=== PATIENT | female | born 1970 | race Caucasian/White ===

== ENCOUNTER 2019-01-20 11:48 | Emergency (ER) | payer MEDICAID ==
[~2019-01-20] VITALS: Ht 165.1 cm; Wt 74.8 kg
[2019-01-20 11:55] VITALS: BP 132/71; Ht 165.1 cm; Wt 74.8 kg
[2019-01-20] MEDS ORDERED: NEURONTIN 400400 MG PO (12:41)
[2019-01-20] MEDS ORDERED: ZOVIRAX800 MG PO (12:41)
== END 2019-01-20 12:52 | disposition home or self-care (01) ==
LOC: D.ER 11:48
DX: B02.9 Zoster without complications (principal)

== ENCOUNTER 2019-03-02 14:05 | Emergency (ER) | payer MEDICAID ==
[~2019-03-02 14:05] MED LIST: NEURONTIN 400400 MG PO; ZOVIRAX800 MG PO
[2019-03-02 14:12] VITALS: BP 113/72; BMI 25.8
[2019-03-02] MEDS ORDERED: GABAPENTIN100 MG PO (15:59)
== END 2019-03-02 16:07 | disposition home or self-care (01) ==
LOC: D.ER 14:05
DX: B02.9 Zoster without complications (principal)